=== PATIENT | female | born 1985 | race Caucasian/White ===

== ENCOUNTER 2018-04-07 09:25 | Outpatient (CLI) | payer OTHER | END 2018-04-07 12:00 | disposition home or self-care (01) | LOC: OBT 09:25 → L-D 09:25 → OBT 12:00 | DX: O36.8330 Maternal care for abnormalities of the fetal heart rate or rhythm, third trimester, not applicable or unspecified (principal); O34.219 Maternal care for unspecified type scar from previous cesarean delivery; Z3A.38 38 weeks gestation of pregnancy | CPT/HCPCS: 76818 ==

== ENCOUNTER 2018-04-10 10:45 | Outpatient (CLI) | payer OTHER | END 2018-04-10 11:55 | disposition home or self-care (01) | LOC: OBT 10:45 → L-D 10:45 → OBT 11:55 | DX: O36.8330 Maternal care for abnormalities of the fetal heart rate or rhythm, third trimester, not applicable or unspecified (principal); O34.219 Maternal care for unspecified type scar from previous cesarean delivery; Z3A.38 38 weeks gestation of pregnancy | CPT/HCPCS: 76815; 76818 ==